=== PATIENT | male | born 1980 | race African-American/Black ===

== ENCOUNTER 2023-06-27 12:53 | Emergency (ER) | payer MEDICAID ==
[~2023-06-27] VITALS: Ht 180.3 cm; Wt 98.4 kg
[2023-06-27 13:05] VITALS: TEMP 98.6; O2SAT 100
[2023-06-27 13:56] LABS: BASOPHILS % 0.1 % (0.0-2.0); EOSINOPHILS % 0.7 % (0.0-5.0); HEMATOCRIT. 43.8 % (42.0-52.0); HEMOGLOBIN. 14.5 g/dL (14.0-18.0); LYMPHOCYTES % 12.1 % (20.0-50.0); MEAN CORPUSCULAR HEMOGLOBIN 29.6 pg (28.0-32.0); MEAN CORPUSCULAR HGB CONC 33.1 g/dL (31.0-37.0); MEAN CORPUSCULAR VOLUME 89.4 fL (80.0-94.0); MEAN PLATELET VOLUME 8.6 fl (7.4-10.4); MONOCYTES % 9.5 % (2.0-8.0); NEUTROPHILS % 77.6 % (40.0-76.0); PLATELET 258 x1000/uL (130-400); RED CELL DISTRIBUTION WIDTH 14.2 % (11.6-14.6); WHITE BLOOD COUNT 15.9 x1000/uL (4.5-11.0)
[2023-06-27 14:12] LABS: CHLORIDE 105 mEq/L (98-107); POTASSIUM 4.3 mEq/L (3.5-5.1); SODIUM 139 mEq/L (136-145)
[2023-06-27 14:13] LABS: CALCIUM 8.4 mg/dL (8.7-10.4); CARBON DIOXIDE 30 mEq/L (21-32)
[2023-06-27 14:18] LABS: GLUCOSE 93 mg/dL (70-105); UREA NITROGEN BLOOD 10 mg/dL (9-23)
[2023-06-27 14:20] LABS: ALANINE AMINOTRANSFERASE 17 IU/L (10-49); ALBUMIN 4.3 g/dL (3.2-4.8); ASPARTATE AMINOTRANSFERASE 16 IU/L (<34); BILIRUBIN TOTAL 0.5 mg/dL (0.1-1.0); PROTEIN TOTAL 7.7 g/dL (6.0-8.3)
[2023-06-27 15:56] LABS: CLARITY URINE TURBID (CLEAR); COLOR URINE ORANGE (YELLOW); GLUCOSE URINE NEGATIVE (NEGATIVE); KETONES URINE NEGATIVE (NEGATIVE); LEUKOCYTE ESTERASE URINE 3+ (NEGATIVE); NITRITE URINE POSITIVE (NEGATIVE); OCCULT BLOOD URINE 3+ (NEGATIVE); PROTEIN URINE 3+ (NEGATIVE); SPECIFIC GRAVITY URINE 1.017 (1.005-1.030)
[2023-06-27] MEDS: KETOROLAC 30MG/ML VIAL IM ONE (16:10)
[2023-06-27] MEDS ORDERED: SULF1TAB48 MT (16:18)
[2023-06-27] MEDS ORDERED: PYR200 MT (16:25)
[2023-06-27 16:47] VITALS: BP 140/82; PULSE 82; RESP 16
[2023-06-27 16:52] LABS: WBC URINE TNTC /hpf (0-2)
[2023-06-27 16:53] LABS: RBC URINE 50-100 /hpf (0-2)
[2023-06-27 16:54] LABS: BACTERIA URINE 4+; SQUAMOUS EPITHELIAL CELL URINE 2+ /lpf (RARE/1+)
[2023-06-30 09:06] LABS: CHLAMYDIA TRACHOMATIS NAA Negative (Negative); NEISSERIA GONORRHOEAE NAA Negative (Negative)
== END 2023-06-27 16:48 | disposition home or self-care (01) ==
LOC: ER 12:53
DX: R30.0 Dysuria (principal); R31.9 Hematuria, unspecified; N39.0 Urinary tract infection, site not specified
CPT/HCPCS: 87491; 87591; 80053; 81003; 85025; 87086; 87186; 87077; 36415; 74176; 96372; 99285; J1885; Z7610